=== PATIENT | female | born 1945 | race Caucasian/White ===

== ENCOUNTER → 2018-04-09 | Outpatient (CLI) | payer MEDICARE, OTHER ==
[~2018-04-09] MED LIST: ALPR-557 PO; ALPR0.5T72 PO; BENA5TAB PO; BNZ10T PO; CALC-250 PO; CTLP20T PO; HYDROCODONE; LEVO75TA6 PO; OMEP20TA2 PO; SENN-75 PO; SNN187T PO; TRAM50TA2 PO
== END ==
LOC: WOUNDCARE 09:05
PROVIDERS: ATTEND Nurse Practitioner
DX: L98.491 Non-pressure chronic ulcer of skin of other sites limited to breakdown of skin (principal); C13.9 Malignant neoplasm of hypopharynx, unspecified
CPT/HCPCS: 99212

== ENCOUNTER → 2018-04-16 | Outpatient (CLI) | payer MEDICARE, OTHER | LOC: WOUNDCARE 09:28 | PROVIDERS: ATTEND Nurse Practitioner | DX: L98.491 Non-pressure chronic ulcer of skin of other sites limited to breakdown of skin (principal); C13.9 Malignant neoplasm of hypopharynx, unspecified | CPT/HCPCS: 99212 ==

== ENCOUNTER 2018-11-04 14:58 | Outpatient (CLI) | payer MEDICARE, OTHER ==
[~2018-11-04] VITALS: Ht 157.5 cm; Wt 43.7 kg
[2018-11-04] MEDS ORDERED: TRAZ-189 PO (15:06)
[2018-11-04] MEDS ORDERED: BENA10TA7 PO (15:06)
[2018-11-04] MEDS ORDERED: CITA20TA9 PO (15:06)
[2018-11-04] MEDS ORDERED: CHOL2000 PO (15:06)
[2018-11-04] MEDS ORDERED: LEVO50TA6 PO (15:10)
[2018-11-04 15:11] VITALS: BP 162/93
--- NOTE | 2018-11-04 15:45 | Diagnostic Imaging Report ---
INDICATION: PRE-OP for neck surgery. COMPARISON: 02/18/2014 FINDINGS: Frontal and lateral views of the chest demonstrate normal heart size and pulmonary vascularity. The lungs are hyperinflated, but are otherwise clear. There are no signs of infiltrate, pleural effusions or pneumothoraces. The visualized osseous structures show no acute abnormalities. Note is made of calcified aortic atherosclerosis. IMPRESSION: 1. No acute process. No signs of infiltrates, effusions or pneumothoraces. 2. Background COPD. Dictated by: Dictated on workstation # [id number]
[2018-11-04 16:09] LABS: BASOPHILS % (AUTO) 0 % (0-10); EOSINOPHILS # (AUTO) 0.1 10^3/uL (0.0-0.3); EOSINOPHILS % (AUTO) 2 % (0-10); HEMATOCRIT 37 % (35-52); HEMOGLOBIN 13.1 G/DL (11.5-16.0); LYMPHOCYTES % (AUTO) 16 % (12-44); MEAN CORPUSCULAR HEMOGLOBIN 33 PG (25-34); MEAN CORPUSCULAR HGB CONC 35 G/DL (32-36); MEAN CORPUSCULAR VOLUME 93 FL (80-99); MEAN PLATELET VOLUME 10.4 FL (7.4-10.4); MONOCYTES # (AUTO) 0.6 X 10^3 (0.0-1.0); MONOCYTES % (AUTO) 10 % (0-12); NEUTROPHILS # (AUTO) 4.2 X 10^3 (1.8-7.8); NEUTROPHILS % (AUTO) 71 % (42-75); PLATELET COUNT 275 10^3/uL (130-400); RED CELL DISTRIBUTION WIDTH 14.6 % (10.0-14.5); WHITE BLOOD COUNT 5.9 10^3/uL (4.3-11.0)
[2018-11-04 16:31] LABS: CALCIUM 9.8 MG/DL (8.5-10.1); CREATININE SERUM 1.13 MG/DL (0.60-1.30); POTASSIUM 4.2 MMOL/L (3.6-5.0)
== END 2018-11-04 16:00 | disposition home or self-care (01) ==
LOC: PREOP 14:58
PROVIDERS: ATTEND Otolaryngology Otolaryngology/Facial Plastic Surgery
DX: Z01.810 Encounter for preprocedural cardiovascular examination (principal); Z01.811 Encounter for preprocedural respiratory examination; Z01.812 Encounter for preprocedural laboratory examination; Z11.2 Encounter for screening for other bacterial diseases; L98.9 Disorder of the skin and subcutaneous tissue, unspecified
CPT/HCPCS: 36415; 71046; 80048; 85025; 87081; 93005

== ENCOUNTER 2018-11-08 06:25 | Day surgery (SDC) | payer MEDICARE, OTHER ==
[~2018-11-08] VITALS: Ht 157.5 cm; Wt 42.6 kg
[~2018-11-08 06:25] MED LIST changes: +BENA10TA7 PO; +CHOL2000 PO; +CITA20TA9 PO; +LEVO50TA6 PO; +TRAZ-189 PO
--- NOTE | 2018-11-08 06:51 | NUR ---
THIS RN NOTIFIED ANESTHESIA SRNA DILMA AND MEE LITTLEJOHN CRNA OF PATIENT BEING HYPERTENSIVE AT 0644 219/100, 208/111, 231/109 LEFT ARM AND AT 0658 RIGHT ARM 230/106. ANESTHESIA IN ROOM AT 0730 TO RETAKE BLOOD PRESSURE AND ADDRESS ISSUE.
[2018-11-08 06:55] VITALS: BP 219/100
[2018-11-08] MEDS ORDERED: LACTATED RINGERS 1,000 ML IV PRN (07:00)
[2018-11-08] MEDS ORDERED: MUPIROCIN 2% OINT 22 GM (BACTROBAN) TUBE ONE (07:24)
[2018-11-08] MEDS ORDERED: LIDOCAINE/EPI 1%-1:100,000 (XYLOCAINE) 20ML ONE (07:24)
[2018-11-08] MEDS ORDERED: LIDOCAINE 1% INJ 20 ML 20 ML VIAL ONE (07:24)
[2018-11-08] MEDS ORDERED: fentaNYL INJECTION 100 MCG/2 ML AMP ONE (07:31)
[2018-11-08] MEDS ORDERED: MIDAZOLAM 2 MG/2 ML (VERSED) VIAL ONE (07:31)
[2018-11-08] MEDS ORDERED: LIDOCAINE PF 2% 5 ML (XYLOCAINE) VIAL ONE (07:31)
[2018-11-08] MEDS ORDERED: proPOfol 200 MG/20 ML (DIPRIVAN) VIAL IV ONE (07:31)
[2018-11-08] MEDS ORDERED: ONDANSETRON 4 MG/2 ML (SDV) Z0FRAN ONE ×2 (07:31→07:39)
[2018-11-08] MEDS ORDERED: LABETALOL HCL 20 MG/4 ML VIAL ONE (07:32)
[2018-11-08] MEDS ORDERED: DEXAMETHASONE 10 MG/ML (DECADRON) 1 ML VIAL ONE (07:39)
[2018-11-08] MEDS ORDERED: SUCCINYLCHOLINE INJ 100 MG/5 ML SYR ONE (08:39)
--- NOTE | 2018-11-08 09:10 | Progress Note-Pre Operative ---
Pre-Operative Progress Note H&P Reviewed The H&P was reviewed, patient examined and no changes noted. Date Seen by Provider: Nov 08, 2018 Time Seen by Provider: 06:30 Date H&P Reviewed: Nov 08, 2018 Time H&P Reviewed: 06:30 Pre-Operative Diagnosis: Rigth Nasal Lesion, Left Neck Lesion KENNETH HITCHCOCK MD Nov 08, 2018 09:10
--- NOTE | 2018-11-08 09:11 | Progress Note-Post Operative ---
Post-Operative Progess Note Surgeon (s)/Clinical Biochemist (s) Surgeon KENNETH HITCHCOCK MD Clinical Biochemist n/a Pre-Operative Diagnosis Rigth Nasal Lesion, Left Neck Lesion Post-Operative Diagnosis same Post-Op Procedure Note Date of Procedure: Nov 08, 2018 Name of Procedure Performed: Excison of Right Nasal Leison, Excisoin of Left Neck lesion with INtermediate Repairs Description & Findings Description and Findings: n/a Anesthesia Type get Estimated Blood Loss minimal Packing none. Specimen(s) collected/removed left neck lesion, right nasal lesion KENNETH HITCHCOCK MD Nov 08, 2018 09:11
[2018-11-08] MEDS ORDERED: ONDANSETRON 4 MG/2 ML (SDV) Z0FRAN IVP PRN (09:15)
[2018-11-08] MEDS ORDERED: HYDROmorphone 2 MG/ML VIAL (DILAUDID) IV ONE (09:15)
[2018-11-08] MEDS ORDERED: ACETAMINOPHEN 325 MG TABLET PO PRN (09:15)
[2018-11-08] MEDS ORDERED: HYDROcodone/APAP 5 MG/325 MG (LORTAB) TAB PO PRN (09:15)
[2018-11-08] MEDS ORDERED: SEVOFLURANE (ULTANE) 15 ML INHAL SOLN ONE (09:22)
[2018-11-08 10:05] VITALS: BP 153/83
[2018-11-08 10:35] VITALS: BP 162/87
[2018-11-08] MEDS ORDERED: HYDR-3870 PO (10:42)
[2018-11-08] MEDS ORDERED: MUPIROCIN 2% OINT 22 GM (BACTROBAN) TUBE TOP SCH ×2 (10:45→21:00)
[2018-11-08 11:05] VITALS: BP 166/83
--- NOTE | 2018-11-08 14:21 | Anesthesia-General Post-Op ---
General Patient Condition Mental Status/LOC: Same as Preop Cardiovascular: Satisfactory Nausea/Vomiting: Absent Respiratory: Satisfactory Pain: Controlled Complications: Absent Post Op Complications Complications None Follow Up Care/Instructions Patient Instructions None needed. Anesthesia/Patient Condition Patient Condition Patient is doing well, no complaints, stable vital signs, no apparent adverse anesthesia problems. No complications reported per nursing. MEE LITTLEJOHN CRNA Nov 08, 2018 14:21
== END 2018-11-08 11:35 | disposition home or self-care (01) ==
LOC: SDC 06:25
PROVIDERS: ATTEND Otolaryngology Otolaryngology/Facial Plastic Surgery
DX: C44.311 Basal cell carcinoma of skin of nose (principal); C44.41 Basal cell carcinoma of skin of scalp and neck; I10 Essential (primary) hypertension; F17.210 Nicotine dependence, cigarettes, uncomplicated; K21.9 Gastro-esophageal reflux disease without esophagitis; Z85.01 Personal history of malignant neoplasm of esophagus; Z92.3 Personal history of irradiation; Z79.899 Other long term (current) drug therapy